=== PATIENT | female | born 1990 | race Caucasian/White ===

== ENCOUNTER → 2020-08-24 | Outpatient (CLI) | payer BC, OTHER ==
[~2020-08-24] VITALS: Ht 167.6 cm; Wt 86.2 kg
[~2020-08-24] MED LIST: NYSTATIN SWISH PO; OMEPRAZOLE20 MG PO; PREDNISONE 10 M10 MG PO; ZOFRAN ODT 4 MG4 MG PO
== END ==
LOC: OPSV 08-17 10:00
DX: K50.012 Crohn's disease of small intestine with intestinal obstruction (principal)
CPT/HCPCS: 96365; J3358; J7050

== ENCOUNTER 2021-02-28 10:17 | Emergency (ER) | payer BC ==
[2021-02-28 11:38] LABS: HEMOGLOBIN 14.1 gm/dl (12.3-15.3); RED BLOOD COUNT 4.62 M/UL (4.00-5.10); WHITE BLOOD COUNT 11.2 K/UL (4.5-11.0)
[2021-02-28 11:51] LABS: BUN/CREATININE RATIO 7 (0-10)
[2021-02-28] MEDS ORDERED: MEDROL DOSEPAK 24 MG PO (14:16)
[2021-02-28] MEDS ORDERED: ASACOL HD800 MG PO (14:16)
== END 2021-02-28 14:30 | disposition home or self-care (01) ==
LOC: ER1 10:17
PROVIDERS: Physician Assistant
DX: K50.90 Crohn's disease, unspecified, without complications (principal); Z90.89 Acquired absence of other organs; F17.200 Nicotine dependence, unspecified, uncomplicated
CPT/HCPCS: 80053; 81001; 83690; 84703; 85025; 99284; Q9967